=== PATIENT | female | born 1935 | race Caucasian/White ===

== ENCOUNTER 2022-06-14 18:01 | Inpatient (IN) | payer MEDICARE ==
[2022-06-14] MEDS ORDERED: Morphine 2 MG/ML VIAL SLOW IVP PRN (19:31)
[2022-06-14] MEDS ORDERED: Ondansetron ODT 4 MG TAB PO PRN (19:31)
[2022-06-14] MEDS ORDERED: Dextrose 50% Abboject 50 ML SYRINGE SLOW IVP PRN (19:31)
[2022-06-14] MEDS ORDERED: Dextrose 5% in Water 1,000 ML IV PRN (19:31)
[2022-06-14] MEDS ORDERED: TETANUS, DIPHTHERIA TOX,ADULT (TDVAX) 0.5 ML VIAL IM ONE (19:31)
[2022-06-14] MEDS ORDERED: Ondansetron PF 4 MG/2 ML Vial IVP PRN (19:31)
[2022-06-14] MEDS ORDERED: Morphine 4 MG/ML VIAL SLOW IVP PRN (19:31)
[2022-06-14] MEDS ORDERED: Ipratropium/Albuterol 3 ML NEB NEB PRN (19:31)
[2022-06-14] MEDS ORDERED: traMADol HCl 50 MG TAB PO PRN (19:35)
[2022-06-14 19:38] VITALS: BMI 23.1
[2022-06-14] MEDS ORDERED: Sodium Chloride 0.9% 1,000 ML IV SCH (19:45)
[2022-06-14] MEDS: Cyclobenzaprine 10 MG TAB PO PRN (22:00)
[2022-06-14] MEDS: traMADol HCl 50 MG TAB PO SCH (22:00)
[2022-06-14] MEDS: Famotidine 20 MG TAB PO SCH (22:03)
[2022-06-14] MEDS: Acetaminophen 500 MG TAB PO SCH (22:04)
[2022-06-14] MEDS: Senokot S 8.6-50 MG TAB PO SCH (22:04)
[2022-06-15 00:20] LABS: SARS-CoV-2 NAA Rapid Test Not Detected (NotDetected)
[2022-06-15] MEDS: Cyclobenzaprine 10 MG TAB PO PRN ×2 (03:26→20:13)
[2022-06-15] MEDS: Acetaminophen 500 MG TAB PO SCH ×4 (03:26→20:11)
[2022-06-15] MEDS: traMADol HCl 50 MG TAB PO SCH ×4 (03:27→20:13)
[2022-06-15 06:09] LABS: #Eosinphils 0.1 thou/uL (0.0-0.7); #Lymphocytes 0.6 thou/uL (1.20-3.40); #Monocytes 0.8 thou/uL (0.11-0.59); %Basophils 0.2 % (0.0-1.0); %Eosinophils 0.7 % (0.0-10.0); %Lymphocytes 4.2 % (21.0-51.0); %Monocytes 6.2 % (0.0-10.0); %Neutrophils 88.8 % (42.0-75.0); Hemoglobin 13.3 g/dL (12.0-16.0); Mean Corpuscular HGB CONC 33.3 g/dL (32.0-36.0); Mean Corpuscular Hemoglobin 29.6 pg (27.0-31.0); Mean Corpuscular Volume 88.9 fl (78.0-98.0); Mean Platelet Volume 7.8 fL (7.4-10.4); Platelet Count 285 10x3/uL (130-400); White Blood Cell (WBC) Count 13.6 10x3/uL (4.8-10.8)
[2022-06-15 06:31] LABS: Anion Gap 11 mmol/L (10-20); BUN (Urea Nitrogen) 26 mg/dL (9.8-20.1); Calc. Creatinine Clearance 40 mL/min (70-130); Calcium 8.9 mg/dL (7.8-10.44); Carbon Dioxide 20 mmol/L (23-31); Chloride 106 mmol/L (98-107); Estimated GFR 60; Glucose 106 mg/dL (83-110); Magnesium 1.8 mg/dL (1.6-2.6); Phosphorus 3.5 mg/dL (2.3-4.7); Potassium 4.1 mmol/L (3.5-5.1); Sodium 133 mmol/L (136-145)
[2022-06-15] MEDS ORDERED: Morphine 4 MG/ML VIAL SLOW IVP PRN (07:53)
[2022-06-15] MEDS: Carbidopa/Levodopa 25-100 mg Tablet PO SCH ×3 (08:26→20:12)
[2022-06-15] MEDS ORDERED: Magnesium 2 GM/50 ML(in water) 2 GM in Premix Bag 1 BAG IVPB SCH (08:45)
[2022-06-15] MEDS ORDERED: PHOS-NAK 1 PKT PACK PO SCH (08:45)
[2022-06-15] MEDS ORDERED: fentaNYL PF 100 MCG/2 ML SYRINGE ONE (09:53)
[2022-06-15] MEDS ORDERED: Clindamycin/D5W 900 mg/50 ml Premix Bag ONE (10:03)
[2022-06-15] MEDS ORDERED: Ondansetron PF 4 MG/2 ML Vial ONE (10:15)
[2022-06-15] MEDS ORDERED: Dexamethasone 20 MG/5 ML VIAL ONE (10:15)
[2022-06-15] MEDS ORDERED: PHENYLEPHRINE-NS 100 MCG/ML 10 ML SYRINGE ONE (10:15)
[2022-06-15] MEDS ORDERED: Rocuronium Bromide 10 MG/ML (10ML VIAL) ONE (10:15)
[2022-06-15] MEDS ORDERED: ePHEDrine 50 MG/ML VIAL ONE (10:15)
[2022-06-15] MEDS ORDERED: PROPOFOL 200 MG/20 ML VIAL ONE (10:15)
[2022-06-15] MEDS: Senokot S 8.6-50 MG TAB PO SCH ×2 (10:36→20:12)
[2022-06-15] MEDS: Sodium Bicarbonate Tab 325 MG TAB PO SCH ×2 (10:36→20:12)
[2022-06-15] MEDS: Amlodipine 5 MG TAB PO SCH (10:36)
[2022-06-15] MEDS: Polyethylene Glycol 3350 17 GM Packet PO SCH (10:36)
[2022-06-15] MEDS ORDERED: Bupivacaine HCl 0.5%/Epinephrine 1:200,000/PF 30 ml Vial ONE (11:17)
[2022-06-15] MEDS ORDERED: SUGAMMADEX SODIUM 200 MG/2 ML VIAL ONE (11:27)
[2022-06-15] MEDS ORDERED: Promethazine HCl 25 MG/ML VIAL IM PRN (11:51)
[2022-06-15] MEDS ORDERED: Ondansetron HCl/PF 4 MG/2 ML Vial IVP PRN (11:51)
[2022-06-15] MEDS ORDERED: HYDROcodone/Acetaminophen 5/325 mg Tablet PO PRN ×2 (12:02)
[2022-06-15] MEDS ORDERED: TETANUS, DIPHTHERIA TOX,ADULT (TDVAX) 0.5 ML VIAL IM ONE (12:02)
[2022-06-15] MEDS ORDERED: Communication Order-Pharmacy FS SCH (12:15)
[2022-06-15] MEDS: Clindamycin/D5W 900 MG in Premix Bag 1 BAG IVPB SCH ×2 (13:42→20:47)
[2022-06-15] MEDS: Aspirin 81 mg Enteric Coated Tablet PO SCH (20:12)
[2022-06-15] MEDS: Famotidine 20 MG TAB PO SCH (20:13)
[2022-06-16] MEDS: Acetaminophen 500 MG TAB PO SCH ×4 (04:28→19:54)
[2022-06-16] MEDS: traMADol HCl 50 MG TAB PO SCH ×4 (04:28→19:54)
[2022-06-16 06:12] LABS: #Lymphocytes 0.5 thou/uL (1.20-3.40); #Monocytes 1.3 thou/uL (0.11-0.59); #Neutrophils 12.6 thou/uL (1.40-6.50); %Eosinophils 0.2 % (0.0-10.0); %Lymphocytes 3.4 % (21.0-51.0); %Monocytes 8.9 % (0.0-10.0); %Neutrophils 87.6 % (42.0-75.0); Hemoglobin 11.1 g/dL (12.0-16.0); Mean Corpuscular HGB CONC 33.4 g/dL (32.0-36.0); Mean Corpuscular Hemoglobin 29.9 pg (27.0-31.0); Mean Corpuscular Volume 89.4 fl (78.0-98.0); Platelet Count 252 10x3/uL (130-400); Red Blood Cell (RBC) Count 3.73 mill/uL (4.20-5.40); White Blood Cell (WBC) Count 14.4 10x3/uL (4.8-10.8)
[2022-06-16 06:35] LABS: Anion Gap 13 mmol/L (10-20); BUN (Urea Nitrogen) 27 mg/dL (9.8-20.1); Calc. Creatinine Clearance 38 mL/min (70-130); Calcium 8.6 mg/dL (7.8-10.44); Carbon Dioxide 18 mmol/L (23-31); Chloride 108 mmol/L (98-107); Estimated GFR 57; Glucose 130 mg/dL (83-110); Magnesium 2.3 mg/dL (1.6-2.6); Phosphorus 3.8 mg/dL (2.3-4.7); Potassium 4.4 mmol/L (3.5-5.1); Sodium 135 mmol/L (136-145)
[2022-06-16] MEDS: Amlodipine 5 MG TAB PO SCH (08:55)
[2022-06-16] MEDS: Aspirin 81 mg Enteric Coated Tablet PO SCH ×2 (08:56→19:54)
[2022-06-16] MEDS: Sodium Bicarbonate Tab 325 MG TAB PO SCH ×2 (08:56→19:55)
[2022-06-16] MEDS: Carbidopa/Levodopa 25-100 mg Tablet PO SCH ×3 (08:57→19:54)
[2022-06-16] MEDS: Polyethylene Glycol 3350 17 GM Packet PO SCH (08:58)
[2022-06-16] MEDS: Senokot S 8.6-50 MG TAB PO SCH ×2 (08:58→19:55)
[2022-06-16] MEDS: ALPRAZolam 1 MG TAB PO SCH (19:54)
[2022-06-16] MEDS: Famotidine 20 MG TAB PO SCH (19:55)
[2022-06-17] MEDS: Acetaminophen 500 MG TAB PO SCH ×2 (02:03→08:29)
[2022-06-17] MEDS: traMADol HCl 50 MG TAB PO SCH ×2 (02:04→08:30)
[2022-06-17 08:00] LABS: Mean Corpuscular HGB CONC 32.9 g/dL (32.0-36.0); Mean Corpuscular Volume 91.4 fl (78.0-98.0); Mean Platelet Volume 7.7 fL (7.4-10.4); Platelet Count 249 10x3/uL (130-400); RBC Distribution Width 13.9 % (11.5-14.5); Red Blood Cell (RBC) Count 3.34 mill/uL (4.20-5.40); White Blood Cell (WBC) Count 8.8 10x3/uL (4.8-10.8)
[2022-06-17 08:10] LABS: Anion Gap 14 mmol/L (10-20); BUN (Urea Nitrogen) 35 mg/dL (9.8-20.1); Calc. Creatinine Clearance 26 mL/min (70-130); Carbon Dioxide 19 mmol/L (23-31); Chloride 106 mmol/L (98-107); Estimated GFR 37; Glucose 71 mg/dL (83-110); Magnesium 2.2 mg/dL (1.6-2.6); Phosphorus 3.3 mg/dL (2.3-4.7); Potassium 4.2 mmol/L (3.5-5.1); Sodium 135 mmol/L (136-145)
[2022-06-17] MEDS: Sodium Bicarbonate Tab 325 MG TAB PO SCH ×2 (08:29→20:40)
[2022-06-17] MEDS: Aspirin 81 mg Enteric Coated Tablet PO SCH ×2 (08:29→20:39)
[2022-06-17] MEDS: Senokot S 8.6-50 MG TAB PO SCH ×2 (08:29→20:38)
[2022-06-17] MEDS: Carbidopa/Levodopa 25-100 mg Tablet PO SCH ×3 (08:29→20:39)
[2022-06-17] MEDS: Polyethylene Glycol 3350 17 GM Packet PO SCH (08:29)
[2022-06-17] MEDS ORDERED: Sodium Chloride 0.9% 500 ML IV SCH (08:30)
[2022-06-17 08:39] LABS: Band 8 % (5-11); Eosinophils 4 % (0-10); Lymphocytes 13 % (21-51); MDiff Complete? YES; Monocytes 14 % (0-10); Neutrophil 60 % (42-75); Platelet Morphology Comment Appears Adequate; RBC Morphology Normal; Reactive Lymphocytes 1 % (0-10)
[2022-06-17] MEDS: Amlodipine 5 MG TAB PO SCH (08:39)
[2022-06-17] MEDS ORDERED: Acetaminophen/Codeine 30-300mg Tablet PO PRN (09:50)
[2022-06-17] MEDS ORDERED: Hydrocortisone Sod Succ/PF 100 mg/2 ml Vial IVP SCH (15:45)
[2022-06-17] MEDS: Acetaminophen 325 MG TAB PO SCH ×2 (16:37→20:36)
[2022-06-17] MEDS: ALPRAZolam 1 MG TAB PO SCH (20:37)
[2022-06-17] MEDS: QUEtiapine 25 MG TAB PO SCH (20:38)
[2022-06-17] MEDS: Melatonin 3 MG TAB PO PRN (20:41)
[2022-06-17] MEDS: Hydrocortisone Sod Succ/PF 100 mg/2 ml Vial IVP SCH (23:16)
[2022-06-18] MEDS: Acetaminophen 325 MG TAB PO SCH ×5 (02:17→20:05)
[2022-06-18] MEDS ORDERED: QUEtiapine 25 MG TAB PO SCH (03:15)
[2022-06-18] MEDS: Hydrocortisone Sod Succ/PF 100 mg/2 ml Vial IVP SCH ×4 (05:20→23:55)
[2022-06-18 05:41] LABS: #Lymphocytes 0.8 thou/uL (1.20-3.40); #Monocytes 0.8 thou/uL (0.11-0.59); #Neutrophils 7.7 thou/uL (1.40-6.50); %Eosinophils 0.2 % (0.0-10.0); %Lymphocytes 8.2 % (21.0-51.0); %Monocytes 8.4 % (0.0-10.0); %Neutrophils 83.2 % (42.0-75.0); Hemoglobin 9.6 g/dL (12.0-16.0); Mean Corpuscular HGB CONC 33.6 g/dL (32.0-36.0); Mean Corpuscular Hemoglobin 30.1 pg (27.0-31.0); Mean Corpuscular Volume 89.5 fl (78.0-98.0); Mean Platelet Volume 7.8 fL (7.4-10.4); Platelet Count 258 10x3/uL (130-400); RBC Distribution Width 13.8 % (11.5-14.5); White Blood Cell (WBC) Count 9.3 10x3/uL (4.8-10.8)
[2022-06-18 06:04] LABS: Anion Gap 15 mmol/L (10-20); BUN (Urea Nitrogen) 32 mg/dL (9.8-20.1); Calc. Creatinine Clearance 31 mL/min (70-130); Calcium 8.9 mg/dL (7.8-10.44); Carbon Dioxide 19 mmol/L (23-31); Chloride 105 mmol/L (98-107); Estimated GFR 45; Glucose 88 mg/dL (83-110); Phosphorus 3.7 mg/dL (2.3-4.7); Potassium 3.9 mmol/L (3.5-5.1); Sodium 135 mmol/L (136-145)
[2022-06-18] MEDS: Aspirin 81 mg Enteric Coated Tablet PO SCH (08:40)
[2022-06-18] MEDS: Carbidopa/Levodopa 25-100 mg Tablet PO SCH ×3 (08:40→20:04)
[2022-06-18] MEDS: Senokot S 8.6-50 MG TAB PO SCH ×2 (08:40→20:04)
[2022-06-18] MEDS: Amlodipine 5 MG TAB PO SCH (08:41)
[2022-06-18] MEDS: Polyethylene Glycol 3350 17 GM Packet PO SCH (08:41)
[2022-06-18] MEDS: Sodium Bicarbonate Tab 325 MG TAB PO SCH ×2 (08:41→20:04)
[2022-06-18] MEDS ORDERED: Lactated Ringer's 500 ML IV SCH (09:15)
[2022-06-18] MEDS: Apixaban 5 MG TAB PO SCH ×2 (12:40→20:04)
[2022-06-18] MEDS: Midodrine HCl 5 MG TAB PO SCH ×2 (16:04→20:04)
[2022-06-18] MEDS: QUEtiapine 25 MG TAB PO SCH (20:04)
[2022-06-18] MEDS: Melatonin 3 MG TAB PO PRN (20:05)
[2022-06-19] MEDS: Acetaminophen 325 MG TAB PO SCH ×2 (01:19→09:50)
[2022-06-19] MEDS: Hydrocortisone Sod Succ/PF 100 mg/2 ml Vial IVP SCH ×2 (05:47→11:35)
[2022-06-19 07:49] LABS: Hemoglobin 9.8 g/dL (12.0-16.0)
[2022-06-19 09:45] LABS: Anion Gap 15 mmol/L (10-20); BUN (Urea Nitrogen) 34 mg/dL (9.8-20.1); Calc. Creatinine Clearance 33 mL/min (70-130); Calcium 9.4 mg/dL (7.8-10.44); Carbon Dioxide 20 mmol/L (23-31); Chloride 107 mmol/L (98-107); Estimated GFR 48; Glucose 85 mg/dL (83-110); Potassium 3.9 mmol/L (3.5-5.1); Sodium 138 mmol/L (136-145)
[2022-06-19] MEDS: Apixaban 5 MG TAB PO SCH (09:51)
[2022-06-19] MEDS: Sodium Bicarbonate Tab 325 MG TAB PO SCH (09:51)
[2022-06-19] MEDS: Midodrine HCl 5 MG TAB PO SCH (09:51)
[2022-06-19] MEDS: Carbidopa/Levodopa 25-100 mg Tablet PO SCH (09:52)
[2022-06-19] MEDS: Polyethylene Glycol 3350 17 GM Packet PO SCH (10:00)
[2022-06-19] MEDS: Senokot S 8.6-50 MG TAB PO SCH (10:00)
[2022-06-19 12:24] VITALS: TEMP 98.3
[2022-06-19 13:48] VITALS: BP 101/53
== END 2022-06-19 14:50 | disposition swing bed (61) | DRG 522 ==
LOC: SURG A 18:01
PROVIDERS: ADMIT Surgery; ATTEND Surgery
PROC: 0SR90J9 Replacement of Right Hip Joint with Synthetic Substitute, Cemented, Open Approach (ICD-10-PCS; principal; 2022-06-15)
DX: S72.011A Unspecified intracapsular fracture of right femur, initial encounter for closed fracture (principal); I48.91 Unspecified atrial fibrillation; G20 Parkinson's disease; I12.9 Hypertensive chronic kidney disease with stage 1 through stage 4 chronic kidney disease, or unspecified chronic kidney disease; N18.30 Chronic kidney disease, stage 3 unspecified; W18.30XA Fall on same level, unspecified, initial encounter; Z85.038 Personal history of other malignant neoplasm of large intestine; Z90.49 Acquired absence of other specified parts of digestive tract; Z88.0 Allergy status to penicillin; Z79.01 Long term (current) use of anticoagulants; Z79.82 Long term (current) use of aspirin; Z79.899 Other long term (current) drug therapy
CPT/HCPCS: 36415; 71045; 80048; 82533; 83735; 84100; 85014; 85018; 85025; 86850; 86900; 86901; 93005; 93010; C1713; C1776; J1100; J1720; J2272; J2405; J2704; J3475; J3490; J7030; J7050; J7120; U0002

== ENCOUNTER 2023-05-23 08:02 | Emergency (ER) | payer MEDICARE ==
[2023-05-23] MEDS ORDERED: Acetaminophen 325 MG TAB ONE (08:44)
[2023-05-23 09:06] LABS: #Basophils 0.1 thou/uL (0.0-0.2); #Eosinphils 0.1 thou/uL (0.0-0.7); #Monocytes 0.7 thou/uL (0.11-0.59); #Neutrophils 7.1 thou/uL (1.40-6.50); %Basophils 0.6 % (0.0-1.0); %Eosinophils 1.2 % (0.0-10.0); %Lymphocytes 14.6 % (21.0-51.0); %Neutrophils 75.6 % (42.0-75.0); Hematocrit 45.8 % (36.0-47.0); Hemoglobin 15.3 g/dL (12.0-16.0); Mean Corpuscular HGB CONC 33.4 g/dL (32.0-36.0); Mean Corpuscular Hemoglobin 30.1 pg (27.0-31.0); Mean Platelet Volume 10.4 fL (7.4-10.4); Platelet Count 202 10x3/uL (130-400); RBC Distribution Width 14.3 % (11.5-14.5); Red Blood Cell (RBC) Count 5.09 mill/uL (4.20-5.40); White Blood Cell (WBC) Count 9.3 10x3/uL (4.8-10.8)
[2023-05-23 09:33] LABS: Troponin I Less than 0.010 ng/mL (< 0.028)
[2023-05-23 09:34] LABS: ALT (SGPT) Less than 7 U/L (8-55); AST (SGOT) 16 U/L (5-34); Albumin 3.9 g/dL (3.4-4.8); Alkaline Phosphatase 81 U/L (40-110); Anion Gap 15 mmol/L (10-20); BUN (Urea Nitrogen) 31 mg/dL (9.8-20.1); Calc. Creatinine Clearance 0 mL/min (70-130); Calcium 9.6 mg/dL (7.8-10.44); Carbon Dioxide 18 mmol/L (23-31); Chloride 108 mmol/L (98-107); Estimated GFR 44; Globulin 3.2 g/dL (2.4-3.5); Glucose 95 mg/dL (83-110); Potassium 4.6 mmol/L (3.5-5.1); Protein, Total 7.1 g/dL (5.8-8.1); Sodium 136 mmol/L (136-145)
[2023-05-23] MEDS ORDERED: Ibuprofen 200 MG TAB ONE (11:33)
== END 2023-05-23 11:38 | disposition home or self-care (01) ==
LOC: ERS 08:02
DX: S06.0X9A Concussion with loss of consciousness of unspecified duration, initial encounter (principal); S42.001A Fracture of unspecified part of right clavicle, initial encounter for closed fracture; S50.811A Abrasion of right forearm, initial encounter; I10 Essential (primary) hypertension; I48.91 Unspecified atrial fibrillation; W07.XXXA Fall from chair, initial encounter
CPT/HCPCS: 36415; 70450; 72125; 80053; 84484; 85025; 93005

== ENCOUNTER 2023-07-14 08:26 | Observation (INO) | payer MEDICARE ==
[2023-07-14 10:03] LABS: #Eosinphils 0.1 thou/uL (0.0-0.7); #Monocytes 0.6 thou/uL (0.11-0.59); #Neutrophils 7.3 thou/uL (1.40-6.50); %Basophils 0.4 % (0.0-1.0); %Eosinophils 0.6 % (0.0-10.0); %Lymphocytes 10.6 % (21.0-51.0); %Monocytes 6.7 % (0.0-10.0); %Neutrophils 81.1 % (42.0-75.0); Hematocrit 44.9 % (36.0-47.0); Hemoglobin 15.1 g/dL (12.0-16.0); Mean Corpuscular HGB CONC 33.6 g/dL (32.0-36.0); Mean Corpuscular Hemoglobin 29.9 pg (27.0-31.0); Mean Corpuscular Volume 88.9 fl (78.0-98.0); Mean Platelet Volume 9.8 fL (7.4-10.4); Platelet Count 300 10x3/uL (130-400); RBC Distribution Width 14.6 % (11.5-14.5); Red Blood Cell (RBC) Count 5.05 mill/uL (4.20-5.40); White Blood Cell (WBC) Count 9.1 10x3/uL (4.8-10.8)
[2023-07-14 10:29] LABS: ALT (SGPT) Less than 7 U/L (8-55); AST (SGOT) 13 U/L (5-34); Alkaline Phosphatase 105 U/L (40-110); Anion Gap 10 mmol/L (10-20); BUN (Urea Nitrogen) 27 mg/dL (9.8-20.1); Bilirubin, Total 0.8 mg/dL (0.2-1.2); Calc. Creatinine Clearance 0 mL/min (70-130); Calcium 9.7 mg/dL (7.8-10.44); Carbon Dioxide 21 mmol/L (23-31); Chloride 105 mmol/L (98-107); Estimated GFR 47; Globulin 2.9 g/dL (2.4-3.5); Glucose 101 mg/dL (83-110); Magnesium 1.9 mg/dL (1.6-2.6); Potassium 4.1 mmol/L (3.5-5.1); Protein, Total 6.9 g/dL (5.8-8.1); Sodium 132 mmol/L (136-145)
[2023-07-14 10:33] LABS: Troponin I Less than 0.010 ng/mL (< 0.028)
[2023-07-14 11:40] LABS: Bacteria/HPF None Seen HPF (None Seen); Bilirubin Negative (Negative); Blood, Urine Negative (Negative); CAUTI Indications for Culture Alt mental st,lethar; Clarity Clear (Clear); Glucose, Urine (Dipstick) Normal (Negative); Ketone, Urine Negative (Negative); Leukocyte Negative Leu/uL (Negative); Nitrite Negative (Negative); Protein, Urine (Dipstick) Negative (Neg-Trace); RBC/HPF 0-3 HPF (0-3); Squamous Epithelial None Seen HPF (0-3); Urobilinogen Normal mg/dL (Less than 2); WBC/HPF 0-3 HPF (0-3)
[2023-07-14] MEDS ORDERED: Ondansetron PF 4 MG/2 ML Vial IVP PRN (11:40)
[2023-07-14 11:43] LABS: Urine Culture Reflex No No
[2023-07-14] MEDS: Sodium Chloride 0.9% 1,000 ML IV SCH (14:40)
[2023-07-14] MEDS: Acetaminophen 325 MG TAB PO PRN (14:40)
[2023-07-14] MEDS: Carbidopa/Levodopa 25-100 mg Tablet PO SCH (14:43)
[2023-07-14 15:09] LABS: Troponin I Less than 0.010 ng/mL (< 0.028)
[2023-07-14 15:55] VITALS: BMI 22.2
[2023-07-14] MEDS: ALPRAZolam 1 MG TAB PO SCH (20:26)
[2023-07-14] MEDS: Apixaban 2.5 MG TAB PO SCH (20:26)
[2023-07-15 05:21] LABS: #Basophils 0.1 thou/uL (0.0-0.2); #Eosinphils 0.1 thou/uL (0.0-0.7); #Monocytes 0.9 thou/uL (0.11-0.59); #Neutrophils 3.5 thou/uL (1.40-6.50); %Eosinophils 2.3 % (0.0-10.0); %Lymphocytes 24.2 % (21.0-51.0); %Monocytes 14.5 % (0.0-10.0); %Neutrophils 57.5 % (42.0-75.0); Hematocrit 40.9 % (36.0-47.0); Hemoglobin 13.5 g/dL (12.0-16.0); Mean Corpuscular Hemoglobin 29.5 pg (27.0-31.0); Mean Corpuscular Volume 89.3 fl (78.0-98.0); Platelet Count 252 10x3/uL (130-400); RBC Distribution Width 14.7 % (11.5-14.5); Red Blood Cell (RBC) Count 4.58 mill/uL (4.20-5.40); White Blood Cell (WBC) Count 6.1 10x3/uL (4.8-10.8)
[2023-07-15 05:51] LABS: Anion Gap 10 mmol/L (10-20); BUN (Urea Nitrogen) 25 mg/dL (9.8-20.1); Calc. Creatinine Clearance 30 mL/min (70-130); Calcium 9.1 mg/dL (7.8-10.44); Carbon Dioxide 20 mmol/L (23-31); Chloride 112 mmol/L (98-107); Estimated GFR 46; Glucose 85 mg/dL (83-110); Potassium 3.5 mmol/L (3.5-5.1); Sodium 138 mmol/L (136-145)
[2023-07-15 07:58] VITALS: TEMP 97.5
[2023-07-15] MEDS: Midodrine HCl 5 MG TAB PO SCH (09:12)
[2023-07-15 12:29] VITALS: BP 122/60
== END 2023-07-15 14:45 ==
LOC: ERS 08:26 → 2SW 11:33
PROVIDERS: ADMIT Internal Medicine; ATTEND Internal Medicine
DX: I95.1 Orthostatic hypotension (principal); G20.A1 Parkinson's disease without dyskinesia, without mention of fluctuations; I48.0 Paroxysmal atrial fibrillation; I10 Essential (primary) hypertension; K21.9 Gastro-esophageal reflux disease without esophagitis; Z85.038 Personal history of other malignant neoplasm of large intestine; Z88.0 Allergy status to penicillin; Z79.82 Long term (current) use of aspirin; Z79.899 Other long term (current) drug therapy; Z98.890 Other specified postprocedural states
CPT/HCPCS: 70450; 71045; 80048; 80053; 81001; 83735; 84484 ×2; 85025 ×2; 93005; 97116; 97535; G0378 ×3; 36415; J7050